=== PATIENT | female | born 2000 | race Hispanic/Latino ===

== ENCOUNTER 2020-09-18 13:18 | Emergency (ER) | payer BC, SELFPAY ==
[2020-09-18 13:19] VITALS: BP 129/72; PULSE 104; RESP 18; TEMP 35; O2SAT 99; BMI 30.9
[2020-09-18 13:51] VITALS: O2SAT 100
--- NOTE | 2020-09-18 13:53 | ED.VISSUMM ---
- ER Visit Summary Date of Service: 09/18/20 Chief Complaint: Sledding accident History of Present Illness: The patient is a 20 F who is a [employer] student. She reports that she was sledding and was going quite quickly and she had a bump and became airborne. She landed and hit her head. No loss of consciousness. She not on anticoagulants. She denies a headache. She reports that she has neck pain that is 1 out of 10 in severity. She denies any pain to her chest or abdomen. No back pain. No shoulder, wrist, or hip pain. Physical Examination: Vitals: Stable. Afebrile. Neck: No vertebral tenderness. Full ROM without difficulty. Cleared by NEXUS criteria. Mild tenderness palpation over the right trapezius muscle. Back: No vertebral tenderness. General: A&O x 3. NAD. Cardiovascular exam: Regular rate and rhythm, no murmur, rub or gallop. Respiratory exam: Chest nontender. No crepitus. Clear to auscultation bilaterally. No wheezes or stridor. Abdominal exam: Soft, nontender, nondistended, normal bowel sounds. No pain in RUQ or LUQ specifically. No peritoneal signs. Extremity: Atraumatic. No pain with range of motion. Emergency Department Course and Treatment: Patient refused pain medications. She is resting comfortably. Treatment Plan: Patient be discharged with symptomatic care. Use moist heat to the area. Use Tylenol and/or ibuprofen for pain. Follow-up with Dr. Barron in 3 to 5 days if not improving. Return to the emergency department for any worsening symptoms. Disposition: To home in improved and stable condition. Impression: 1. Sledding accident. 2. Right trapezius pain. This note was generated with [employer] software. It may contain incorrect words, spelling, and punctuation that were not noted in review of the chart prior to signing ED Disposition - Plan for ED Patient: Instructions: ED Neck Sprain or Strain Referrals: Nathan Barron MD [STAFF PHYSICIAN] - 3-5 Days if not improving
== END 2020-09-18 14:34 | disposition home or self-care (01) ==
PROVIDERS: Emergency Provider Emergency Medicine; PCP Pediatrics
DX: M25.511 Pain in right shoulder (principal)
CPT/HCPCS: 99282